=== PATIENT | male | born 1970 | race Two or more races ===

== ENCOUNTER → 2025-03-11 | Outpatient (CLI) | payer OTHER, MEDICAID, SELFPAY ==
--- NOTE | 2025-03-11 15:30 | XR_ITS ---
Examination: MRI pelvis with intravenous contrast. MRI pelvis without intravenous contrast. Date and time of exam: March 11, 2025 1523 hours INDICATIONS: Burning sensation with urination Krzysztof Lopes 2 months ago with elevated PSA Technique: Multiple axial, sagittal and coronal sections of the pelvis obtained. Transverse images, TR 6020, TE 107. T1 weighted transverse images, TR 582, TE 9.5. T2-weighted sagittal images, TR 4000, TE 105. T2-weighted sagittal images, TR 4000, TE 5. Coronal images, TR 4210, TE 107. Axial and coronal images are obtained post 14 cc intravenous injection, gadolinium. Findings: Study dimension 4.8 cm Areas of cystic change in the right prostate body Postcontrast and precontrast images demonstrate 9 x 8 mm nodule posterior left prostate Normal seminal vesicles No free fluid in the pelvis Urinary bladder intact No extraluminal iliac or internal iliac lymphadenopathy Homogeneous marrow signal IMPRESSION: Mild prostatomegaly 9 x 8 mm nodule posterior left prostate, recommend transrectal prostate sonography follow-up
== END | disposition home or self-care (01) ==
PROVIDERS: PCP Nurse Practitioner; Referring Provider Physician Assistant Medical; Visit Provider Physician Assistant Medical
DX: N40.2 Nodular prostate without lower urinary tract symptoms (principal)
CPT/HCPCS: 72197; A9579